=== PATIENT | male | born 1960 | race Caucasian/White ===

== ENCOUNTER 2018-07-31 07:30 | Inpatient (IN) | payer OTHER ==
[~2018-07-31] VITALS: Ht 170.2 cm; Wt 89.0 kg
[2018-10-30] VITALS (30 sets, daily range): BP systolic 86–132; BP diastolic 60–99; PULSE 81–140; RESP 10–32; Ht 170.2 cm; Wt 89.0 kg
[2018-10-30] MEDS ORDERED: MIDAZOLAM 1 MG/ML 2 ML INJ ONE (06:32)
[2018-10-30] MEDS ORDERED: CEFAZOLIN 1 GM INJ ONE (06:32)
[2018-10-30] MEDS ORDERED: ONDANSETRON 4 MG INJ ONE (06:32)
[2018-10-30] MEDS ORDERED: KETOROLAC 30 MG INJ ONE (06:32)
[2018-10-30] MEDS ORDERED: PROPOFOL 20 ML ONE (06:32)
--- NOTE | 2018-10-30 06:52 | PREAC ---
Date/Time of Note Date/Time of Note DATE: 10/30/18 TIME: 06:50 Anesthesia Eval and Record Evaluation Time Pre-Procedure Interview DATE: 10/30/18 TIME: 06:50 Age 57 Sex male NPO: 8 hrs Preoperative diagnosis DJD R. Hip Planned procedure GAEL Past Medical History Past Medical History: None Surgery & Anesthesia Issues No known issue Meds Anticoagulation: No Beta Chance within 24 hr: No Reason Beta Chance not given: Pt. not on B-Chance Current Medications Lactated Ringer's 1,000 ml @ 125 mls/hr Q8H IV ; Start 10/30/18 at 07:00; Stop 10/30/18 at 14:59 Cefazolin Sodium 50 ml @ 100 mls/hr PRE-OP ONCE IVPB ; Start 10/30/18 at 07:00; Stop 10/30/18 at 07:29 Tranexamic Acid 100 ml @ 220 mls/hr PRE-OP ONCE IVPB ; Start 10/30/18 at 07:00; Stop 10/30/18 at 07:27 Tranexamic Acid 100 ml @ 200 mls/hr INTRA-OP ONCE IVPB ; Start 10/30/18 at 07:00; Stop 10/30/18 at 07:29 Oxycodone HCl (Oxycontin) 10 mg PRE-OP ONCE PO ; Start 10/30/18 at 07:00; Stop 10/30/18 at 07:01 Acetaminophen (Tylenol Tab) 1,000 mg PRE-OP ONCE PO ; Start 10/30/18 at 07:00; Stop 10/30/18 at 07:01 Lansoprazole (Prevacid) 30 mg PRE-OP ONCE PO ; Start 10/30/18 at 07:00; Stop 10/30/18 at 07:01 Ondansetron HCl (Zofran Inj) 4 mg PRE-OP ONCE IV ; Start 10/30/18 at 07:00; Stop 10/30/18 at 07:01 Dexamethasone (Decadron) 8 mg PRE-OP ONCE IV ; Start 10/30/18 at 07:00; Stop 10/30/18 at 07:01 Ropivacaine/ Morphine Sulfate/ Clonidine/ Epinephrine/ Ketorolac Tromethamine/ Vancomycin HCl/ Sodium Chloride INTRA-OP INJ ; Start 10/30/18 at 07:30; Stop 10/30/18 at 10:30 Meds reviewed: Yes Allergies Coded Allergies: No Known Allergy (Unverified , 10/29/18) Allergies Reviewed: Yes Labs/Studies Labs Reviewed: Reviewed by anesthesiologist Blood Bank Test 10/30/18 06:42 Blood Product Summary Counts test: N/A Pre-procedure Exam Airway: Adequate mouth opening Mallampati: Mallampati II Teeth: Normal Lung: Normal Heart: Normal ASA Physical Status ASA physical status: 2 Emergency: None Planned Anesthetic General/MAC: LMA Neuraxial: Spinal Pre-operative Attestations Prior to commencing anesthesia and surgery, the patient was re-evaluated, there was verification of: *The patient's identity *The results of appropriate recent lab work and preoperative vital signs *The above evaluation not changing prior to induction *Anesthetic plan, risk benefits, alternative and complications discussed with patient/family; questions answered; patient/family understands, accepts and wishes to proceed. LIBERTY WALLACE MD Oct 30, 2018 06:52
[2018-10-30] MEDS ORDERED: POLYMYXIN B 500000 UNIT INJ ONE (06:54)
[2018-10-30] MEDS ORDERED: LACTATED RINGER'S 1,000 ML IV SCH (07:00)
[2018-10-30] MEDS ORDERED: HIP PAIN COCKTAIL (CEFUROXIME) INJ SCH ×7 (07:00)
[2018-10-30] MEDS ORDERED: TRANEXAMIC ACID 1GM/100ML(PMX) 100 ML INTRA-OP X1 IVPB ONE (07:00)
[2018-10-30] MEDS ORDERED: HYDROmorphONE 1 MG/5 ML IV SYRINGE IV PRN (07:00)
[2018-10-30] MEDS ORDERED: FENTAnyl 50 MCG/ML VIAL IV PRN (07:00)
[2018-10-30] MEDS ORDERED: ACETAMINOPHEN 500 MG TAB PO ONE (07:00)
[2018-10-30] MEDS ORDERED: LACTATED RINGER'S 1,000 ML IV ONE (07:00)
[2018-10-30] MEDS ORDERED: CEFAZOLIN 1 GM/50 ML (PMX) 50 ML IVPB ONE (07:00)
[2018-10-30] MEDS ORDERED: DEXAMETHASONE 4 MG/ML 1 ML INJ IV ONE (07:00)
[2018-10-30] MEDS ORDERED: oxyCODONE (CR) 10 MG TAB [oxyCONTIN] PO ONE (07:00)
[2018-10-30] MEDS ORDERED: ONDANSETRON 4 MG INJ IV PRN (07:00)
[2018-10-30] MEDS ORDERED: TRANEXAMIC ACID 1GM/100ML(PMX) 100 ML PRE-OP X1 IVPB ONE (07:00)
[2018-10-30] MEDS ORDERED: ONDANSETRON 4 MG INJ IV ONE (07:00)
[2018-10-30] MEDS ORDERED: ACETAMINOPHEN 1000MG/100ML IV 100 ML IVPB ONE (07:00)
[2018-10-30] MEDS ORDERED: LANSOPRAZOLE 30 MG CAP PO ONE (07:00)
[2018-10-30] MEDS ORDERED: TRAZ-149 ORAL (07:14)
--- NOTE | 2018-10-30 07:15 | HPN ---
Date/Time of Note Date/Time of Note DATE: 10/30/18 TIME: 07:15 Interval H&P Admission Note Pt. seen H&P reviewed: No system changes ESME SIERRA MD Oct 30, 2018 07:15
[2018-10-30] MEDS ORDERED: TRANEXAMIC ACID 1GM/100ML(PMX) 200 ML ONE (07:23)
[2018-10-30] MEDS ORDERED: HIP PAIN COCKTAIL VANCO INJ SCH ×7 (07:30)
[2018-10-30] MEDS ORDERED: BACITRACIN 50000 UNITS INJ IRR ONE (09:19)
--- NOTE | 2018-10-30 10:54 | SIPON ---
Date/Time of Note Date/Time of Note DATE: 10/30/18 TIME: 10:53 Operative Report Preoperative Diagnosis Right Hip Osteoarthritis Postoperative Diagnosis Same Operation/Procedure Performed Right Total Hip Arthroplasty Surgeon Kaela Nunes MD field administrative assistant Major Bey Second assist: CL HOPPER Anesthesia: spinal Estimated blood loss: other Transfusion Required none Specimen bone Grafts/Implants none Complications none KAELA NUNES MD Oct 30, 2018 10:54
[2018-10-30] MEDS ORDERED: DOCUSATE SODIUM 100 MG CAP PO ONE (11:00)
[2018-10-30] MEDS ORDERED: BISACODYL 10 MG SUPP PR PRN (11:00)
[2018-10-30] MEDS ORDERED: NALOXONE (0.4 MG/ML) INJ IV PRN (11:00)
[2018-10-30] MEDS ORDERED: NA PHOSPHATE/BIPHOS 133 ML ENEMA PR PRN (11:00)
[2018-10-30] MEDS ORDERED: NACL 0.9% 3 ML SYG IV SCH (11:00)
--- NOTE | 2018-10-30 11:04 | OPR ---
Date/Time of Note Date/Time of Note DATE: 10/30/18 TIME: 10:58 Operative Report Free Text/Dictation DATE OF OPERATION: October 30, 2018 PREOPERATIVE DIAGNOSIS: Right hip osteoarthritis. POSTOPERATIVE DIAGNOSIS: Right hip osteoarthritis. PROCEDURES PERFORMED: 1. Right total hip arthroplasty. CPT code 95131., Modifier 22 2. Computer assisted navigational procedure, CPT code 88876. 3. Interpretation of AP Pelvis x-ray. 4. Interpretation of right hip, 2 views. SURGEON: Esme Sierra. WINDSCREEN FITTER: 1. JOCELYNE Ann 2. Major Bey. ANESTHESIOLOGIST: Dr. Guzman ANESTHESIA: Spinal ESTIMATED BLOOD LOSS: 300 mL. COMPLICATIONS: None. SPECIMENS: Resected bone. DISPOSITION: PACU in stable condition. IMPLANT USED: A DePuy Corail size stem size 13 high offset, 36/+1.5 delta c eramic femoral head, 58 Sugarloaf Cup, 38/+4 neutral liner COMPLICATIONS: None. DISPOSITION: To PACU in stable condition. INDICATION FOR PROCEDURE: This is an 57 year-old male with endstage osteoarthritis of the right hip who had failed nonoperative management. Risks, benefits, alternatives of surgical intervention were discussed with the patient and informed consent was obtained. The risks of surgery include but are not limited to infection, deep venous thrombosis, pulmonary embolism, leg length discrepancy, fracture, damage to neurovascular structures requiring repair, loosening of the prosthesis, wear of prosthesis, need for revision surgery, heart attack, stroke, need for blood transfusion, risks associated with anesthesia and even . DESCRIPTION OF PROCEDURE: The patient was met in the preoperative suite and the correct operative site was confirmed and marked. Patient was then brought into operating room. After induction of general anesthesia, the patient was placed in the supine position on the table. The right lower extremity was prepped and draped in the usual sterile fashion. Before starting, a timeout was taken to identify the correct operative site, the patients name and medical record number and to confirm the preoperative antibiotics consisting of 1 gram of IV Ancef, along with 1 gram of tranexamic acid were administered. At this point, an 8 cm incision was made approximately 2 cm lateral and 1 cm distal to the ASIS. The incision was carried down to the fascia. The fascia was then incised. Then, 2 Allis clamps were placed. The interval was then bluntly developed and the tensor fascia moises was then retracted laterally. The lateral circumflex vessels were identified and coagulated. The anterior capsule was then visualized and a capsulotomy was performed. At this point, markings were made for the napkin ring osteotomy of the femoral neck. Using the saw the initial osteotomy was then made and completed with the use of an osteotome. A Kevin was then used to remove the napkin ring and a corkscrew was then placed in the femoral head and the head was then removed. The head was sized to 58 mm. Sequential reaming was begun with a 45 mm reamer, going up to a 57 mm reamer. A trial 58 mm cup was then impacted and the radlink was then used to determine the appropriate anteversion and abduction of the cup. The cup was noted to be in approximately 44 degrees of inclination, and 19 degrees of anteversion. The trial was then removed. The appropriate size cup was then placed and again the radlink was used to determine the inclination and anteversion, and was noted be unchanged. The 36/+4 mm trial liner trial was placed since the patient was short preoperatively on the right lower extremity. At this point, the femoral lift was then used and the leg was then placed in external rotation, extension, and adduction. Retractors were placed and the femoral releases were performed using a box osteotome followed by a canal finder. Sequential broaching was begun with a 8 broach going up to a size 13 broach. The trial 13 mm high offset stem along with a 36/+1.5 trial head and neck were placed. The hip was then reduced and taken through range of motion, noted to be stable in extension and external rotation of up to 120 degrees. AP x-rays of the pelvis and right hip, 2 view x-rays were taken. The x-rays demonstrated the prosthesis to be in the correct position with equal leg lengths. The trial components were then removed including the acetabular liner. The appropriate sized components were then placed. The hip was again reduced with unchanged stability.The hip was again taken through range of motion and noted to be stable to extension and external rotation. The wound was then thoroughly irrigated. The capsule and the fascia were closed using #1 Stratafix. The subcutaneous tissue was closed using 2-0 Vicryl and the skin with 4-0 Monocryl in subcuticular fashion and Steri-Strips were applied. There were no complications. Patient was awakened and taken to postoperative care unit in stable condition. Prior to transfer, the patient was noted to have a palpable dorsalis pedis pulse. POSTOPERATIVE CARE: Patient will be weightbearing as tolerated. Patient will work with physical therapy, and receive multimodal pain management.. Patient will receive two additional doses of IV Ancef along with aspirin 81 mg p.o. b.i.d. for 6 weeks. Patient will have SCDs while in the hospital. Upon discharge, patient will follow up in my office within 2 weeks postoperatively. Modifier 22: This case requires a modifier 22 due to complexity and time required to perform the case. The patient had extensive heterotopic ossificat ion which required increased time of operation. ESME SIERRA MD Oct 30, 2018 11:04
--- NOTE | 2018-10-30 11:17 | PAC ---
Date/Time of Note Date/Time of Note DATE: 10/30/18 TIME: 11:17 Post-Anesthesia Notes Post-Anesthesia Note Last documented vital signs Vital Signs Date Temp Pulse Resp B/P (MAP) Pulse Ox O2 O2 Flow FiO2 Time Delivery Rate 10/30/18 98.5 81 18 132/93 94 Room Air 06:35 (106) Activity: WNL Respiratory function: WNL Cardiovascular function: WNL Mental status: Baseline Pain reasonably controlled: Yes Hydration appropriate: Yes Nausea/Vomiting absent: Yes LIBERTY WALLACE MD Oct 30, 2018 11:17
[2018-10-30] MEDS: ONDANSETRON 4 MG INJ IV SCH ×3 (11:32→23:30)
[2018-10-30] MEDS: oxyCODONE 5 MG TAB PO PRN ×2 (14:12→18:48)
[2018-10-30] MEDS: GABAPENTIN 100 MG CAP PO SCH ×2 (14:12→20:46)
[2018-10-30] MEDS ORDERED: SOD CHLORIDE 0.9% 1,000 ML IV ONE (17:00)
--- NOTE | 2018-10-30 17:10 | CONS ---
Assessment/Plan Assessment/Plan Assessment/Plan (Daily) 57 yo man history of hepatitis C s/p treatment presents after R total hip arthroplasty. #R hip arthroplasty - PT ordered - Analgesia per surgery #Tachycardia - Mildly hypovolemic. Agree with bolus. #Insomnia - Continue home trazodone. #History of hepatitis C - Finished antiviral treatment, outpatient followup. Internal Medicine will continue to follow Consultation Date/Type/Reason Admit Date/Time Oct 30, 2018 at 05:32 Date of Consultation: Oct 30, 2018 Type of Consult Internal Medicine Reason for Consultation Postoperative management Requesting Provider: ESME SIERRA MD Date/Time of Note DATE: 10/30/18 TIME: 17:02 Hx of Present Illness Mr. River is a 57 yo man with history of hepatitis C, remote meth use admitted after elective Right total hip arthroplasty. Had Left hip fracture in s/p repair, since then he overuses his right hip which may have accelerated his arthritis. Had dental appointment 1 week ago with all teeth removed, just finished course of amoxicillin. Was otherwise feeling well prior to surgery. Postoperatively he is tachy to 130s, and had moderate bleeding to surgical site requiring reinforced dressing. Otherwise doing well. 12 point review of systems done, negative except per HPI. Past Medical History Hepatitis C without cirrhosis s/p antiviral treatment Home Meds Reported Medications Trazodone Hcl* (Desyrel*) 50 Mg Tab, 1 TAB ORAL QHS 10/30/18 Medications Current Medications Oxycodone HCl (Roxicodone) 5 mg Q4H PRN PO .PAIN Last administered on 10/30/18at 14:12; Admin Dose 5 MG; Start 10/30/18 at 11:00 Ondansetron HCl (Zofran Inj) 4 mg Q6H IV Last administered on 10/30/18at 11:32; Admin Dose 4 MG; Start 10/30/18 at 11:30; Stop 10/31/18 at 05:31 Cefazolin Sodium/ Dextrose 50 ml @ 100 mls/hr Q8H IVPB ; Start 10/30/18 at 16:10; Stop 10/31/18 at 08:39 Celecoxib (Celebrex) 100 mg BID PO ; Start 10/31/18 at 09:00 Gabapentin (Neurontin) 100 mg TID PO Last administered on 10/30/18at 14:12; Admin Dose 100 MG; Start 10/30/18 at 13:00 Pantoprazole (Protonix Tab) 40 mg DAILY@06 PO ; Start 10/31/18 at 06:00 Bisacodyl (Dulcolax Supp) 10 mg DAILY PRN [place] .CONSTIPATION; Start 10/30/18 at 11:00 Sodium Biphosphate/ Sodium Phosphate (Fleet Enema) 133 ml DAILY PRN [place] .CONSTIPATION; Start 10/30/18 at 11:00 Ketorolac Tromethamine (Toradol) 15 mg Q6H PRN IV .PAIN; Start 10/30/18 at 11:00 Naloxone HCl (Narcan) 0.2 mg Q2M PRN IV .RESP RATE; Start 10/30/18 at 11:00 IV Flush (NS 3 ml) 3 ml per protocol IV ; Start 10/30/18 at 11:00 Aspirin (Halfprin) 81 mg BID PO ; Start 10/31/18 at 09:00 Sodium Chloride 1,000 ml @ 1,000 mls/hr Q1H ONCE IV ; Start 10/30/18 at 17:00; Stop 10/30/18 at 17:59 Allergies: Coded Allergies: No Known Allergy (Unverified , 10/29/18) Past Surgical History L hip fracture s/p repair in Social History Alcohol Use: none Smoking Status: Former smoker (quit in June 2018) Drug Use: other (previously used methamphetamine, last 14 months ago. ) Exam/Review of Systems Exam Vitals Vital Signs Date Temp Pulse Resp B/P (MAP) Pulse Ox O2 O2 Flow FiO2 Time Delivery Rate 10/30/18 97.9 100 18 100/74 96 Room Air 15:22 (83) Exam Gen: Well appearing man supine in bed, well appearing. Eyes: PERRL, no icterus HEENT: Moist mucous membranes. Adentulous. Clear oropharynx Neck: Supple, no lymphadenopathy. Right IJ in place. Card: Regular rate and rhythm, no murmurs Pulm: Clear to auscultation bilaterally Abd: Soft, nontender, nondistended. No hepatosplenomegaly. Ext: R hip with reinforced bandage. Peripherally neurovascular intact bilateral feet. Skin: warm, dry, well perfused. Medications Medication Current Medications Oxycodone HCl (Roxicodone) 5 mg Q4H PRN PO .PAIN Last administered on 10/30/18at 14:12; Admin Dose 5 MG; Start 10/30/18 at 11:00 Ondansetron HCl (Zofran Inj) 4 mg Q6H IV Last administered on 10/30/18at 11:32; Admin Dose 4 MG; Start 10/30/18 at 11:30; Stop 10/31/18 at 05:31 Cefazolin Sodium/ Dextrose 50 ml @ 100 mls/hr Q8H IVPB ; Start 10/30/18 at 16:10; Stop 10/31/18 at 08:39 Celecoxib (Celebrex) 100 mg BID PO ; Start 10/31/18 at 09:00 Gabapentin (Neurontin) 100 mg TID PO Last administered on 10/30/18at 14:12; Admin Dose 100 MG; Start 10/30/18 at 13:00 Pantoprazole (Protonix Tab) 40 mg DAILY@06 PO ; Start 10/31/18 at 06:00 Bisacodyl (Dulcolax Supp) 10 mg DAILY PRN [place] .CONSTIPATION; Start 10/30/18 at 11:00 Sodium Biphosphate/ Sodium Phosphate (Fleet Enema) 133 ml DAILY PRN [place] .CONSTIPATION; Start 10/30/18 at 11:00 Ketorolac Tromethamine (Toradol) 15 mg Q6H PRN IV .PAIN; Start 10/30/18 at 11:00 Naloxone HCl (Narcan) 0.2 mg Q2M PRN IV .RESP RATE; Start 10/30/18 at 11:00 IV Flush (NS 3 ml) 3 ml per protocol IV ; Start 10/30/18 at 11:00 Aspirin (Halfprin) 81 mg BID PO ; Start 10/31/18 at 09:00 Sodium Chloride 1,000 ml @ 1,000 mls/hr Q1H ONCE IV ; Start 10/30/18 at 17:00; Stop 10/30/18 at 17:59 MARIELLA WALKER MD Oct 30, 2018 17:10
[2018-10-30] MEDS: CEFAZOLIN 2 GM/50 ML (PMX) 50 ML IVPB SCH (18:17)
[2018-10-30] MEDS: traZODone 50 MG TAB PO SCH (20:46)
[2018-10-31 00:10] VITALS: BP 98/67; PULSE 94; RESP 20
[2018-10-31] MEDS: oxyCODONE 5 MG TAB PO PRN ×4 (01:14→14:01)
[2018-10-31] MEDS: CEFAZOLIN 2 GM/50 ML (PMX) 50 ML IVPB SCH ×2 (01:15→08:48)
[2018-10-31] MEDS: ONDANSETRON 4 MG INJ IV SCH (05:14)
[2018-10-31 05:17] VITALS: BP 112/67; PULSE 74; RESP 18
[2018-10-31] MEDS: PANTOPRAZOLE (EC) 40 MG TAB PO SCH (05:20)
[2018-10-31 07:23] VITALS: BP 103/67; PULSE 77; RESP 18
[2018-10-31] MEDS: ASPIRIN (EC) 81 MG TAB PO SCH ×2 (08:47→21:00)
[2018-10-31] MEDS: CELECOXIB 100 MG CAP PO SCH ×2 (08:48→21:00)
[2018-10-31] MEDS: GABAPENTIN 100 MG CAP PO SCH ×3 (08:48→21:00)
--- NOTE | 2018-10-31 14:03 | CONS ---
Assessment/Plan Assessment/Plan Assessment/Plan (Daily) 57 yo man history of hepatitis C s/p treatment presents after R total hip arthroplasty. #R hip arthroplasty - PT ordered - Analgesia per surgery #Tachycardia - Resolved #Insomnia - Continue home trazodone. #History of hepatitis C - Finished antiviral treatment, outpatient followup. Consultation Date/Type/Reason Admit Date/Time Oct 30, 2018 at 05:32 Initial Consult Date 10/30/18 Type of Consult Internal Medicine Reason for Consultation Postoperative management Requesting Provider: ESME SIERRA MD Date/Time of Note DATE: 10/31/18 TIME: 14:01 24 HR Interval Summary Free Text/Dictation No acute overnight events. Heart rate normalized. Ambulating with physical therapy. Feeling well, no complaints. Exam/Review of Systems Exam Vitals Vital Signs Date Temp Pulse Resp B/P (MAP) Pulse Ox O2 O2 Flow FiO2 Time Delivery Rate 10/31/18 98.1 77 18 103/67 97 Room Air 07:23 (79) Intake and Output 10/30/18 10/30/18 10/31/18 1515:00 23:00 07:00 IntakeIntake Total 3300 ml 150 ml 300 ml OutputOutput Total 200 ml 400 ml 400 ml BalanceBalance 3100 ml -250 ml -100 ml Exam Gen: Well appearing man supine in bed, well appearing. Eyes: PERRL, no icterus HEENT: Moist mucous membranes. Adentulous. Clear oropharynx Neck: Supple, no lymphadenopathy. Right IJ in place. Card: Regular rate and rhythm, no murmurs Pulm: Clear to auscultation bilaterally Abd: Soft, nontender, nondistended. No hepatosplenomegaly. Ext: R hip with reinforced bandage. Peripherally neurovascular intact bilateral feet. Skin: warm, dry, well perfused. Results Result Diagram: 10/31/18 0437 10/31/18 0437 Results 24hrs Laboratory Tests Test 10/31/18 04:37 10/31/18 04:40 10/31/18 06:58 White Blood Count 10.9 H Red Blood Count 2.88 L Hemoglobin 8.4 L Hematocrit 24.7 L Mean Corpuscular Volume 85.8 Mean Corpuscular Hemoglobin 29.2 Mean Corpuscular 34.0 Hemoglobin Concent Red Cell Distribution Width 13.6 Platelet Count 177 Mean Platelet Volume 10.3 Immature Granulocytes % 0.500 H Neutrophils % 72.6 Lymphocytes % 15.6 Monocytes % 10.4 Eosinophils % 0.6 Basophils % 0.3 Nucleated Red Blood Cells % 0.0 Immature Granulocytes # 0.050 H Neutrophils # 7.9 H Lymphocytes # 1.7 Monocytes # 1.1 H Eosinophils # 0.1 Basophils # 0.0 Nucleated Red Blood Cells # 0.0 Sodium Level 140 Potassium Level 3.8 Chloride Level 109 Carbon Dioxide Level 28 Anion Gap 3 L Blood Urea Nitrogen 13 Creatinine 0.65 Est Glomerular Filtrat > 60 Rate mL/min Glucose Level 119 Calcium Level 7.3 L Prothrombin Time 16.4 H Prothrombin Time Ratio 1.3 INR International 1.31 Normalized Ratio Lab Scanned Report REFERENCE LAB Medications Medication Current Medications Oxycodone HCl (Roxicodone) 5 mg Q4H PRN PO .PAIN Last administered on 10/31/18at 09:40; Admin Dose 5 MG; Start 10/30/18 at 11:00 Celecoxib (Celebrex) 100 mg BID PO Last administered on 10/31/18at 08:48; Admin Dose 100 MG; Start 10/31/18 at 09:00 Gabapentin (Neurontin) 100 mg TID PO Last administered on 10/31/18at 08:48; Admin Dose 100 MG; Start 10/30/18 at 13:00 Pantoprazole (Protonix Tab) 40 mg DAILY@06 PO Last administered on 10/31/18at 05:20; Admin Dose 40 MG; Start 10/31/18 at 06:00 Bisacodyl (Dulcolax Supp) 10 mg DAILY PRN [place] .CONSTIPATION; Start 10/30/18 at 11:00 Sodium Biphosphate/ Sodium Phosphate (Fleet Enema) 133 ml DAILY PRN [place] .CONS TIPATION; Start 10/30/18 at 11:00 Ketorolac Tromethamine (Toradol) 15 mg Q6H PRN IV .PAIN; Start 10/30/18 at 11:00 Naloxone HCl (Narcan) 0.2 mg Q2M PRN IV .RESP RATE; Start 10/30/18 at 11:00 IV Flush (NS 3 ml) 3 ml per protocol IV ; Start 10/30/18 at 11:00 Aspirin (Halfprin) 81 mg BID PO Last administered on 10/31/18at 08:47; Admin Dose 81 MG; Start 10/31/18 at 09:00 Trazodone HCl (Desyrel) 50 mg QHS PO Last administered on 10/30/18at 20:46; Admin Dose 50 MG; Start 10/30/18 at 21:00 MARIELLA WALKER MD Oct 31, 2018 14:03
[2018-10-31 14:08] VITALS: BP 142/76; PULSE 83
[2018-10-31 14:36] VITALS: BP 120/79; PULSE 97; RESP 18
[2018-10-31 19:15] VITALS: BP 128/79; PULSE 93; RESP 20
[2018-10-31] MEDS: KETOROLAC 15 MG INJ IV PRN (19:35)
[2018-10-31] MEDS: traZODone 50 MG TAB PO SCH (21:00)
[2018-10-31] MEDS: DOCUSATE SODIUM 100 MG CAP PO SCH (21:42)
[2018-10-31] MEDS: POLYETHYLENE GLYCOL 17 GM PACKET PO PRN (21:42)
[2018-11-01 02:20] VITALS: BP 117/69; PULSE 94; RESP 20
[2018-11-01] MEDS: KETOROLAC 15 MG INJ IV PRN (04:27)
[2018-11-01] MEDS: PANTOPRAZOLE (EC) 40 MG TAB PO SCH (05:40)
[2018-11-01 07:35] VITALS: BP 121/72; PULSE 78; RESP 20
[2018-11-01] MEDS: CELECOXIB 100 MG CAP PO SCH ×2 (08:45→20:51)
[2018-11-01] MEDS: oxyCODONE 5 MG TAB PO PRN ×2 (08:45→16:42)
[2018-11-01] MEDS: ASPIRIN (EC) 81 MG TAB PO SCH ×2 (08:45→20:51)
[2018-11-01] MEDS: DOCUSATE SODIUM 100 MG CAP PO SCH ×2 (08:45→20:51)
[2018-11-01] MEDS: GABAPENTIN 100 MG CAP PO SCH ×3 (08:45→20:51)
--- NOTE | 2018-11-01 09:56 | PN ---
Date/Time of Note Date/Time of Note DATE: 11/01/18 TIME: 09:52 Assessment/Plan VTE Prophylaxis Risk score (from Ns)>0 risk: 4 SCD applied (from Ns): Yes Pharmacological prophylaxis: other (per surgery) Lines/Catheters IV Catheter Type (from Nrs): Central Line Central line still needed: Yes Urinary Cath still in place: No Assessment/Plan Assessment/Plan 57 yo man history of hepatitis C s/p treatment presents after R total hip arthroplasty. #R hip arthroplasty - PT ordered - Analgesia per surgery - Anticoagulation per surgery #Postoperative bleeding - There are no major abnormalities on coagulation studies. - The patient denies history of easy bruising, bleeding, or major bleeding after his other hip surgery. - Congenital disorder of coagulation is highly unlikely. - The patient's current postoperative bleeding can be attributable to NSAIDs and aspirin alone. - I do not think further workup of an acquired disorder of coagulation is necessary. #Insomnia - Continue home trazodone. #History of hepatitis C - Finished antiviral treatment, outpatient followup. Dispo: From my perspective, the patient is medically clear for discharge to acute rehab. Result Diagram: 11/01/18 0442 11/01/18 0442 Subjective 24 Hr Interval Summary Free Text/Dictation Yesterday afternoon, Dr. Abreu replaced the hip dressing. Patient doing well. No complaints. Ambulating with PT, hasn't done stairs yet but wants to try. Exam/Review of Systems Exam Vitals Vital Signs Date Temp Pulse Resp B/P (MAP) Pulse Ox O2 O2 Flow FiO2 Time Delivery Rate 11/01/18 98.2 78 20 121/72 98 07:35 (88) 11/01/18 Room Air 02:20 Intake and Output 10/31/18 10/31/18 11/01/18 1515:00 23:00 07:00 IntakeIntake Total 290 ml 240 ml OutputOutput Total 200 ml 300 ml BalanceBalance 90 ml -60 ml Exam Gen: Well appearing man supine in bed, well appearing. Eyes: PERRL, no icterus HEENT: Moist mucous membranes. Adentulous. Clear oropharynx Neck: Supple, no lymphadenopathy. Right IJ in place not bleeding. Card: Regular rate and rhythm, no murmurs Pulm: Clear to auscultation bilaterally Abd: Soft, nontender, nondistended. No hepatosplenomegaly. Ext: R hip dressing clean and dry. Surrounding ecchymoses with no bleeding. Peripherally neurovascular intact bilateral feet. Skin: warm, dry, well perfused. Results Results 24hrs Laboratory Tests Test 10/31/18 15:14 11/01/18 04:42 Prothrombin Time 16.3 H 15.2 H Mix PT Normal Plasma 1 Hour 14.1 Mix PT Patient Plasma Immediate 14.1 PT Mixing Studies Interpretation CORRECTED Fibrinogen 334.0 Platelet Func Collagen/Epinephrine 103 Platelet Function Collagen/ADP White Blood Count 7.2 # Red Blood Count 2.58 L Hemoglobin 7.5 L Hematocrit 22.2 L Mean Corpuscular Volume 86.0 Mean Corpuscular Hemoglobin 29.1 Mean Corpuscular Hemoglobin Concent 33.8 Red Cell Distribution Width 13.6 Platelet Count 152 Mean Platelet Volume 10.5 H Immature Granulocytes % 0.300 Neutrophils % 59.0 Lymphocytes % 25.7 Monocytes % 12.1 H Eosinophils % 2.5 Basophils % 0.4 Nucleated Red Blood Cells % 0.0 Immature Granulocytes # 0.020 Neutrophils # 4.2 Lymphocytes # 1.8 Monocytes # 0.9 Eosinophils # 0.2 Basophils # 0.0 Nucleated Red Blood Cells # 0.0 Prothrombin Time Ratio 1.2 INR International Normalized Ratio 1.19 Sodium Level 142 Potassium Level 3.8 Chloride Level 109 Carbon Dioxide Level 30 Anion Gap 3 L Blood Urea Nitrogen 12 Creatinine 0.58 L Est Glomerular Filtrat Rate mL/min > 60 Glucose Level 93 Calcium Level 7.5 L Medications Medication Current Medications Oxycodone HCl (Roxicodone) 5 mg Q4H PRN PO .PAIN Last administered on 11/01/18at 08:45; Admin Dose 5 MG; Start 10/30/18 at 11:00 Celecoxib (Celebrex) 100 mg BID PO Last administered on 11/01/18at 08:45; Admin Dose 100 MG; Start 10/31/18 at 09:00 Gabapentin (Neurontin) 100 mg TID PO Last administered on 11/01/18at 08:45; Admin Dose 100 MG; Start 10/30/18 at 13:00 Pantoprazole (Protonix Tab) 40 mg DAILY@06 PO Last administered on 11/01/18at 05:40; Admin Dose 40 MG; Start 10/31/18 at 06:00 Bisacodyl (Dulcolax Supp) 10 mg DAILY PRN [place] .CONSTIPATION; Start 10/30/18 at 11:00 Sodium Biphosphate/ Sodium Phosphate (Fleet Enema) 133 ml DAILY PRN [place] .CONSTIPATION; Start 10/30/18 at 11:00 Ketorolac Tromethamine (Toradol) 15 mg Q6H PRN IV .PAIN Last administered on 11/01/18 04:27; Admin Dose 15 MG; Start 10/30/18 at 11:00 Naloxone HCl (Narcan) 0.2 mg Q2M PRN IV .RESP RATE; Start 10/30/18 at 11:00 IV Flush (NS 3 ml) 3 ml per protocol IV ; Start 10/30/18 at 11:00 Aspirin (Halfprin) 81 mg BID PO Last administered on 11/01/18 08:45; Admin Dose 81 MG; Start 10/31/18 at 09:00 Trazodone HCl (Desyrel) 50 mg QHS PO Last administered on 10/31/18 21:00; Admin Dose 50 MG; Start 10/30/18 at 21:00 Polyethylene Glycol (Miralax) 17 gm DAILY PRN PO CONSTIPATION Last administered on 10/31/18 21:42; Admin Dose 17 GM; Start 10/31/18 at 21:30 Docusate Sodium (Colace) 100 mg BID PO Last administered on 11/01/18 08:45; Admin Dose 100 MG; Start 10/31/18 at 21:30 MARIELLA WALKER MD Nov 01, 2018 09:56
[2018-11-01 15:32] VITALS: BP 128/68; PULSE 76; RESP 19
[2018-11-01] MEDS ORDERED: NAPR-985 PO (16:49)
[2018-11-01] MEDS ORDERED: ASPI-1044 PO (16:49)
--- NOTE | 2018-11-01 17:29 | PDOCDIS ---
Discharge Instructions DIAGNOSIS Discharge Diagnosis R total hip arthroplasty CONDITION [id number] Patient Condition: [id number] Good HOME CARE INSTRUCTIONS: [id number] Diet Instructions: [id number] Regular ACTIVITY: [id number] Activity Restrictions: [id number] No Restrictions FOLLOW UP/APPOINTMENTS Follow-up Plan 1. For pain, take [id number] ibuprofen and tylenol as needed. 2. For severe pain not responsive to the above, contact Dr. Abreu. 3. See Dr. Abreu in clinic as scheduled. MARIELLA WALKER MD Nov 01, 2018 16:58
[2018-11-01] MEDS: POLYETHYLENE GLYCOL 17 GM PACKET PO PRN (17:36)
[2018-11-01 19:10] VITALS: BP 109/68; PULSE 80; RESP 20
[2018-11-01] MEDS: traZODone 50 MG TAB PO SCH (20:51)
[2018-11-02 02:15] VITALS: BP 111/72; PULSE 81; RESP 20
[2018-11-02] MEDS: PANTOPRAZOLE (EC) 40 MG TAB PO SCH (05:03)
[2018-11-02] MEDS: oxyCODONE 5 MG TAB PO PRN ×3 (05:04→14:10)
[2018-11-02 07:28] VITALS: BP 114/76; PULSE 73; RESP 16
[2018-11-02] MEDS: DOCUSATE SODIUM 100 MG CAP PO SCH (09:08)
[2018-11-02] MEDS: GABAPENTIN 100 MG CAP PO SCH ×2 (09:08→14:05)
[2018-11-02] MEDS: ASPIRIN (EC) 81 MG TAB PO SCH (09:08)
[2018-11-02] MEDS: CELECOXIB 100 MG CAP PO SCH (09:08)
--- NOTE | 2018-11-02 10:59 | CONS ---
Assessment/Plan Assessment/Plan Assessment/Plan (Daily) 57 yo man history of hepatitis C s/p treatment presents after R total hip arthroplasty. #R hip arthroplasty - PT ordered - Analgesia per surgery - Anticoagulation per surgery (aspirin 81 mg BID) #Postoperative bleeding - There are no major abnormalities on coagulation studies. - The patient denies history of easy bruising, bleeding, or major bleeding after his other hip surgery. - Congenital disorder of coagulation is highly unlikely. - The patient's current postoperative bleeding can be attributable to NSAIDs and aspirin alone. - I do not think further workup of an acquired disorder of coagulation is necessary. #Insomnia - Continue home trazodone. #History of hepatitis C - Finished antiviral treatment, outpatient followup. Dispo: Medically clear for discharge home. Consultation Date/Type/Reason Admit Date/Time Oct 30, 2018 at 05:32 Initial Consult Date 10/30/18 Type of Consult Internal Medicine Requesting Provider: ESME SIERRA MD Date/Time of Note DATE: 11/02/18 TIME: 10:57 24 HR Interval Summary Free Text/Dictation No acute overnight events. No new bleeding for surgical site. Did stairs with physical therapy yesterday. He is apprehensive about going home because he lives on the 4th floor and the elevator is very unreliable. But he is agreeable. Exam/Review of Systems Exam Vitals Vital Signs Date Temp Pulse Resp B/P (MAP) Pulse Ox O2 O2 Flow FiO2 Time Delivery Rate 11/02/18 98.9 73 16 114/76 100 Room Air 07:28 (89) Intake and Output 11/01/18 11/01/18 11/02/18 1515:00 23:00 07:00 OutputOutput Total 680 ml 400 ml BalanceBalance -680 ml -400 ml Exam Gen: Well appearing man supine in bed, well appearing. Eyes: PERRL, no icterus HEENT: Moist mucous membranes. Adentulous. Clear oropharynx Neck: Supple, no lymphadenopathy. Right IJ in place. Card: Regular rate and rhythm, no murmurs Pulm: Clear to auscultation bilaterally Abd: Soft, nontender, nondistended. No hepatosplenomegaly. Ext: R hip fresh bandage, mild blood spotting, large ecchymosis not expanding. Peripherally neurovascular intact bilateral feet. Skin: warm, dry, well perfused. Results Result Diagram: 11/02/18 0447 11/02/187 Results 24hrs Laboratory Tests Test 11/02/18 04:47 White Blood Count 6.2 Red Blood Count 2.56 L Hemoglobin 7.4 L Hematocrit 22.0 L Mean Corpuscular Volume 85.9 Mean Corpuscular Hemoglobin 28.9 L Mean Corpuscular Hemoglobin Concent 33.6 Red Cell Distribution Width 13.6 Platelet Count 155 Mean Platelet Volume 10.5 H Immature Granulocytes % 0.500 H Neutrophils % 56.6 Lymphocytes % 28.1 Monocytes % 9.9 Eosinophils % 4.4 Basophils % 0.5 Nucleated Red Blood Cells % 0.0 Immature Granulocytes # 0.030 Neutrophils # 3.5 Lymphocytes # 1.7 Monocytes # 0.6 Eosinophils # 0.3 Basophils # 0.0 Nucleated Red Blood Cells # 0.0 Prothrombin Time 14.6 Prothrombin Time Ratio 1.1 INR International Normalized Ratio 1.13 Sodium Level 141 Potassium Level 4.0 Chloride Level 108 Carbon Dioxide Level 30 Anion Gap 3 L Blood Urea Nitrogen 9 Creatinine 0.55 L Est Glomerular Filtrat Rate mL/min > 60 Glucose Level 96 Calcium Level 7.6 L Medications Medication Current Medications Oxycodone HCl (Roxicodone) 5 mg Q4H PRN PO .PAIN Last administered on 11/02/18 09:13; Admin Dose 5 MG; Start 10/30/18 at 11:00 Celecoxib (Celebrex) 100 mg BID PO Last administered on 11/02/18 09:08; Admin Dose 100 MG; Start 10/31/18 at 09:00 Gabapentin (Neurontin) 100 mg TID PO Last administered on 11/02/18 09:08; Admin Dose 100 MG; Start 10/30/18 at 13:00 Pantoprazole (Protonix Tab) 40 mg DAILY@06 PO Last administered on 11/02/18 05:03; Admin Dose 40 MG; Start 10/31/18 at 06:00 Bisacodyl (Dulcolax Supp) 10 mg DAILY PRN IN .CONSTIPATION Last administered on 11/01/18 13:04; Admin Dose 10 MG; Start 10/30/18 at 11:00 Sodium Biphosphate/ Sodium Phosphate (Fleet Enema) 133 ml DAILY PRN IN .CONSTIPATION Last administered on 11/01/18 20:56; Admin Dose 133 ML; Start 10/30/18 at 11:00 Ketorolac Tromethamine (Toradol) 15 mg Q6H PRN IV .PAIN Last administered on 11/01/18 04:27; Admin Dose 15 MG; Start 10/30/18 at 11:00 Naloxone HCl (Narcan) 0.2 mg Q2M PRN IV .RESP RATE; Start 10/30/18 at 11:00 IV Flush (NS 3 ml) 3 ml per protocol IV ; Start 10/30/18 at 11:00 Aspirin (Halfprin) 81 mg BID PO Last administered on 11/02/18 09:08; Admin Dose 81 MG; Start 10/31/18 at 09:00 Trazodone HCl (Desyrel) 50 mg QHS PO Last administered on 11/01/18 20:51; Admin Dose 50 MG; Start 10/30/18 at 21:00 Polyethylene Glycol (Miralax) 17 gm DAILY PRN PO CONSTIPATION Last administered on 11/01/18 17:36; Admin Dose 17 GM; Start 10/31/18 at 21:30 Docusate Sodium (Colace) 100 mg BID PO Last administered on 11/02/18 09:08; Admin Dose 100 MG; Start 10/31/18 at 21:30 MARIELLA WALKER MD Nov 02, 2018 10:59
== END 2018-11-02 18:00 | disposition home health service (06) | DRG 470 ==
LOC: REC 10-30 05:32 → MS1 10-30 13:08
PROVIDERS: ADMIT Orthopaedic Surgery Adult Reconstructive Orthopaedic Surgery; ATTEND Orthopaedic Surgery Adult Reconstructive Orthopaedic Surgery
PROC: 0SR904A Replacement of Right Hip Joint with Ceramic on Polyethylene Synthetic Substitute, Uncemented, Open Approach (ICD-10-PCS; principal; 2018-10-30 07:30)
DX: M16.11 Unilateral primary osteoarthritis, right hip (principal); B18.2 Chronic viral hepatitis C; G47.00 Insomnia, unspecified; E86.1 Hypovolemia; R00.0 Tachycardia, unspecified; Z79.82 Long term (current) use of aspirin; Z87.891 Personal history of nicotine dependence
CPT/HCPCS: 72170; 73500; 73530; 80048; 85025; 85335; 85384; 85576; 85610; 86850; 86900; 86901; 86920; 88304; 88311; 97116; 97161; 97165; 97530; 97535; C1776; J0131; J0171; J0690; J0697; J0735; J1100; J1170; J1885; J2250; J2274; J2405; J2795; J3010; J3370; J7030; J7120